=== PATIENT | female | born 1980 | race Caucasian/White ===

== ENCOUNTER → 2022-12-08 | Outpatient (CLI) | payer OTHER ==
[~2022-12-08] VITALS: Ht 162.6 cm; Wt 79.5 kg
[~2022-12-08] MED LIST: LIDOCAINE 1% INJ 30 ML (XYLOCAINE) VIAL INJ ONE
--- NOTE | 2022-12-08 12:13 | Diagnostic Imaging Report ---
INDICATION: Abnormal left mammogram. The patient presents for ultrasound-guided left breast biopsy. Patient brought to the sonographic suite and placed on the table in the supine position. Ultrasound imaging of the left breast was performed to evaluate appropriate entry site. Left breast was then prepped and draped in usual sterile fashion. Small amount of 1% lidocaine was utilized for local anesthesia. A total of 3 core biopsies were obtained through the ovoid hypoechoic lesion at the 9 o'clock location of the left breast, utilizing 14-gauge Achieve needle. An S marker clip was then deployed. Hemostasis was obtained using manual compression. Patient tolerated the procedure well. IMPRESSION: Successful ultrasound-guided core biopsy of the ovoid region of hypoechogenicity at the 9 o'clock location of the left breast. Pathology results are currently pending. Dictated by: Dictated on workstation # [id number]
--- NOTE | 2022-12-08 12:20 | Diagnostic Imaging Report ---
INDICATION: Abnormal left mammogram. Patient presents for an ultrasound guided biopsy. DETAILS OF THE PROCEDURE: The patient was brought to the sonographic suite and placed on the table in the supine position. Ultrasound imaging of the left breast was performed to evaluate for an appropriate entry site. The left breast was then prepped and draped in the usual sterile fashion. A small amount of 1% lidocaine was utilized for local anesthesia. A total of four core biopsies was made of an area of somewhat rounded hypoechogenicity in the retroareolar left breast utilizing a 14-gauge Achieve needle. An R marker clip was then deployed. The patient tolerated the procedure well and was sent for a post procedure mammogram in satisfactory condition. IMPRESSION: Successful ultrasound guided core biopsy of a rounded mass-like area of hypoechogenicity in the retroareolar aspect of the left breast. Pathology results are currently pending. Dictated by: Dictated on workstation # [id number]
--- NOTE | 2022-12-08 13:59 | Diagnostic Imaging Report ---
INDICATION: Left breast biopsy with ultrasound. This study is performed to evaluate clip locations. FINDINGS: Unilateral left CC and ML 2D mammography was performed after the patient underwent ultrasound-guided left breast biopsy. The S marker clip is located centrally within the dominant circumscribed lesion in her left breast, labeled as 9 o'clock on the ultrasound-guided biopsy. There is an R marker clip in the retroareolar left breast. IMPRESSION: Marker clip placements, status post two ultrasound-guided biopsies, as described with one within the 9 o'clock location of the left breast and one within the retroareolar left breast. Dictated by: Dictated on workstation # [id number]
== END ==
LOC: RAD 08:54
PROVIDERS: ATTEND Nurse Practitioner Family
DX: R92.8 Other abnormal and inconclusive findings on diagnostic imaging of breast (principal); Z98.82 Breast implant status
CPT/HCPCS: 19083; 19084; 77065; G0279

== ENCOUNTER → 2023-06-15 | Outpatient (CLI) | payer OTHER ==
[~2023-06-15] VITALS: Ht 157 cm; Wt 77.0 kg
[~2023-06-15] MED LIST changes: +CATHETER FLUSH 10 ML SYR IVP PRN; -LIDOCAINE 1% INJ 30 ML (XYLOCAINE) VIAL INJ ONE
[2023-06-15 09:20] VITALS: BP 139/101
--- NOTE | 2023-06-15 17:09 | Cardiology Stress Test Report ---
Stress Test Report Date of Procedure/Referring: Date of Procedure: Jun 15, 2023 PCP Admitting Physician Admitting Physician: Attending Physician: Tereza Bose Baseline Heart Rate: 58 Baseline Blood Pressure: Blood Pressure Systolic: 139 Blood Pressure Diastolic: 101 Vital Signs Date Time Temp Pulse Resp B/P (MAP) Pulse Ox O2 Delivery O2 Flow Rate FiO2 06/15/23 09:20 58 139/101 (114) Baseline Vital Signs Vital Signs Date Time Temp Pulse Resp B/P (MAP) Pulse Ox O2 Delivery O2 Flow Rate FiO2 06/15/23 09:20 58 139/101 (114) Baseline EKG: Baseline EKG: NSR Summary: After explaining the procedure and details to the patient, she signed the consent and was brought to the stress nuclear laboratory. Patient exercised on standard Jules protocol, EKG, heart rate and blood pressure were monitored continuously, resting and stress doses of radio tracer were injected, imaging was acquired and reviewed in the short axis, horizontal long axis and vertical long axis views Patient was able to exercise for a total of 9.30 minutes on Jules protocol, METs 10.3 Maximum heart rate 155 Maximum blood pressure 192/52 Stress EKG, Minimal nondiagnostic changes Recovery EKG, Return to baseline TID: 1 SSS: 1 SDS: 1 EF: 69 Conclusion: Good exercise tolerance for 9 minutes and 30 seconds on standard Jules protocol, 10.3 METS achieving 86% of maximal expected heart rate Appropriate heart rate response to exercise with hypertensive response to exercise return to baseline during recovery Nondiagnostic EKG changes with exercise return to baseline during recovery No significant ischemia or infarction noted on SPECT images Normal left ventricular size, ejection fraction 69% Copy Copies To 1: [facility]/DIVYA HENNESSY MD Jun 15, 2023 17:09
== END ==
LOC: CARD 07:14
PROVIDERS: ATTEND Physician Assistant
DX: I25.10 Atherosclerotic heart disease of native coronary artery without angina pectoris (principal); I10 Essential (primary) hypertension; R00.2 Palpitations
CPT/HCPCS: 78452; 93017; A9502